=== PATIENT | male | born 1945 | race Caucasian/White ===

== ENCOUNTER → 2017-11-05 | Day surgery (SDC) | payer MEDICARE, BC ==
--- NOTE | 2017-11-03 15:31 | MH ---
cc: Raulito Gamez MD DATE OF ADMISSION: 11/05/2017 INDICATION: A 72-year-old male with a history of head and neck cancer, post-radiation therapy. He is having problems with swallowing and dysphagia. He is to undergo esophageal dilation and multiple passes with soft rubber dilators. MEDICATIONS: Current medications include: betamethasone valerate cream, diphenoxylate-atropine tablet, finasteride 5 mg tablet, gabapentin 100 mg capsule, hydrochlorothiazide 12.5 mg capsule, hydrocodone/acetaminophen 5/325 tablet for pain. ALLERGIES: THERE ARE NO KNOWN DRUG ALLERGIES. PHYSICAL EXAMINATION: GENERAL: He is a well-developed, well-nourished male, in no apparent distress. HEENT: Normocephalic and atraumatic. Extraocular motions intact. External ear canals clear. Lips, oral mucosa and oropharynx reveals no lesions. NECK: Shows no masses. CHEST: Clear to auscultation. CARDIOVASCULAR: Heart regular rate. ABDOMEN: Shows no lesion. NECK: Shows no masses. NEUROLOGIC: Nonfocal. ASSESSMENT: This is a 72-year-old male with dysphagia, history of hypopharyngeal carcinoma post-radiation. He has had swallowing therapy and VitalStim. He is to undergo esophageal dilation and multiple passes with soft rubber dilators. The risks and benefits were discussed with the patient. The risks include, but not limited to those of anesthesia, bleeding, unfavorable scarring, hematoma, abscess infection, bleeding, perforation. The patient states he understands and accepts the risks of the procedure. Raulito Gamez MD JPM/TL/rr , 08:14 AM , 08:37 AM [email or web address]
[~2017-11-05] VITALS: Ht 175.3 cm; Wt 74.0 kg
[~2017-11-05] MED LIST: ACETAMINOPHEN/HYDROcodone 325 MG/5 MG TAB PO PRN; ASPI1TAB57 PO; CHLORHEXIDINE GLUCONATE 2 % 1 PACK (2 CLOTHS) TOPICAL PRN; DO NOT ADM ANY ANTICOAGULANT DRUGS PRN; FERR325T18 PO; FINA5TAB2 PO; GABA100C4 PO; HYDR-3516 PO; LACTATED RINGER'S 1000 ML IV PRN; METOPROLOL TARTRATE 25 MG TAB PO PRN; MORPHINE SULFATE 4 MG/ML INJ IV PRN; MULT-65 PO; ONDANSETRON HCL 4 MG/2 ML VIAL IV PUSH PRN; PILO5TAB3 PO; POVIDONE IODINE 5% (ANTISEPSIS KIT) 4 APPLICATIONS EACH NARE PRN; PROPOFOL 500 MG/50 ML INJ 50 ML ONE; SODIUM CHLORID 0.9% 500 ML IV PRN; TAMS0.4C4 PO; TRAM50TA PO; TRAZ100T10 PO; VITA500T83 CHEW
[2017-11-05 07:47] LABS: AUTOMATED NEUTROPHIL # 3.5 TH/MM3 (1.8-7.7); BASOPHIL % 1.1 % (0.0-2.0); EOSINOPHIL # 0.1 TH/MM3 (0-0.4); EOSINOPHIL % 3.1 % (0.0-4.0); HEMATOCRIT 33.2 % (39.0-51.0); LYMPH % 12.3 % (9.0-44.0); LYMPHOCYTE # 0.6 TH/MM3 (1.0-4.8); MEAN CORPUSCULAR HEMOGLOBIN 30.9 PG (27.0-34.0); MEAN CORPUSCULAR HGB CONC 33.3 % (32.0-36.0); MEAN PLATELET VOLUME 7.9 FL (7.0-11.0); MONO % 9.9 % (0.0-8.0); MONOCYTE # 0.5 TH/MM3 (0-0.9); NEUT % 73.6 % (16.0-70.0); PLATELET COUNT 201 TH/MM3 (150-450); RED BLOOD COUNT 3.57 MIL/MM3 (4.50-5.90); RED CELL DISTRIBUTION WIDTH 15.1 % (11.6-17.2); WHITE BLOOD COUNT 4.7 TH/MM3 (4.0-11.0)
--- NOTE | 2017-11-05 09:12 | MP ---
cc: Raulito Gamez MD DATE OF OPERATION: 11/05/2017 INDICATIONS: This is a 72-year-old male with a history of head and neck cancer who has dysphagia post-radiation treatment. He is to undergo esophageal dilation multiple passes soft rubber dilators. PREOPERATIVE DIAGNOSIS: Dysphagia. POSTOPERATIVE: Dysphagia. PROCEDURE: Esophageal dilation multiple passes soft rubber dilators. SUMMARY: The patient was brought to the operating room, placed in supine position, successfully placed under general anesthesia, and prepared in the usual fashion for this procedure. The soft tissues of the oral cavity were palpated. His tongue was elevated forward and then with soft dilators starting at 40-Russian and sequentially to 50-Russian, the patient underwent successful dilation. I was able to pass the dilators with the appropriate amount of resistance. No overly heavy resistance. There was no bleeding and he tolerated this well. There was no evidence of perforation. I did see at the end a small laceration that stopped bleeding on the right lateral lip. It did not require any suture. The patient tolerated the procedure well. He was awakened and taken to recovery room in stable condition. Raulito Gamez MD JPM/PAMELA , 08:57 AM , 09:10 AM
[2017-11-05 10:41] VITALS: BP 138/69; PULSE 71; RESP 20; TEMP 98.5; O2SAT 100
--- NOTE | 2017-11-05 22:09 | EKG ---
Date Performed: 11/05/2017 Time Performed: 07:11:01 PTAGE: 72 years EKG: Sinus rhythm NORMAL ECG NO PREVIOUS TRACING DOCTOR: Brandon Rodriguez Interpretating Date/Time 11/05/2017 22:08:34
== END | disposition home or self-care (01) ==
LOC: HSDC 06:14
PROVIDERS: ATTEND Specialist
DX: R13.10 Dysphagia, unspecified (principal); C76.0 Malignant neoplasm of head, face and neck; Z92.3 Personal history of irradiation; Z79.899 Other long term (current) drug therapy
CPT/HCPCS: 00320; 43450; 85025; 93005; J7120